=== PATIENT | female | born 1955 | race Caucasian/White ===

== ENCOUNTER 2016-06-19 19:58 | Emergency (ER) | payer BC ==
[2016-06-19] MEDS ORDERED: FAMOTIDINE 20 MG/2 ML VIAL IV STA (20:23)
[2016-06-19] MEDS ORDERED: methylPREDNISolone SOD SUCCI 125 MG/2 ML VIAL IV STA (20:23)
--- NOTE | 2016-06-19 21:03 | ED ---
General Adult HPI - General Chief complaint: Allergic Reaction Stated complaint: Allergic Reaction Time Seen by Provider: 06/19/16 20:18 Source: patient, RN notes reviewed Mode of arrival: ambulatory Limitations: no limitations - History of Present Illness Initial comments: Patient 60-year-old female who presents emergency room today with chief complaint of ALLERGIC reaction. Patient admits that she felt it right away with her throat feeling scratchy. States her lips are swollen. Does admit to increased swelling to her uvula. States she did take Benadryl 50 mg which didn' t improve her symptoms. States took another 25 mg prior to arrival. Patient does admit that she's had similar symptoms once in the past after eating soup. She states she had lunch earlier today with nothing that she knew of being ALLERGIC to. States she was getting her hair done with the same time that she' s always had in the past. Patient denies any other complaints or symptoms at this time. Patient denies any recent fever, chills, shortness of breath, chest pain, back pain, abdominal pain, nausea or vomiting, numbness or tingling, dysuria or hematuria, constipation or diarrhea, headaches or visual changes, or any other complaints. - Related Data Home Medications Medication Instructions Recorded Confirmed diphenhydrAMINE [Benadryl] 75 mg PO HS PRN 06/19/16 06/19/16 Previous Rx's Medication Instructions Recorded Famotidine [Pepcid] 20 mg PO BID #14 tablet 06/19/16 predniSONE 60 mg PO DAILY 5 Days 06/19/16 Allergies Allergy/AdvReac Type Severity Reaction Status Date / Time Sulfa (Sulfonamide Allergy Rash/Hives Verified 06/19/16 20:40 Antibiotics) Review of Systems ROS Statement: Those systems with pertinent positive or pertinent negative responses have been documented in the HPI. ROS Other: All systems not noted in ROS Statement are negative. Past Medical History Past Medical History: No Reported History History of Any Multi-Drug Resistant Organisms: None Reported Past Surgical History: No Surgical Hx Reported Past Psychological History: No Psychological Hx Reported Smoking Status: Never smoker Past Alcohol Use History: Occasional Past Drug Use History: None Reported General Exam - General Exam Comments Initial Comments: General: The patient is awake and alert, in no distress, and does not appear acutely ill. Eye: Pupils are equal, round and reactive to light, extra-ocular movements are intact. No nystagmus. There is normal conjunctiva bilaterally. No signs of icterus. Ears, nose, mouth and throat: There are moist mucous membranes and no oral lesions. Increased swelling to both upper and lower lips. No tongue swelling appreciated. Swelling to the uvula. Patient swallows without difficulty. Neck: The neck is supple, there is no tenderness or JVD. Cardiovascular: There is a regular rate and rhythm. No murmur, rub or gallop is appreciated. Respiratory: Lungs are clear to auscultation, respirations are non-labored, breath sounds are equal. No wheezes, stridor, rales, or rhonchi. Musculoskeletal: Normal ROM, no tenderness. Strength 5/5. Sensation intact. Pulses equal bilaterally 2+. Neurological: A&O x 3. CN II-XII intact, There are no obvious motor or sensory deficits. Coordination appears grossly intact. Speech is normal. Skin: Skin is warm and dry and no rashes or lesions are noted. Psychiatric: Cooperative, appropriate mood & affect, normal judgment. Limitations: no limitations Course Vital Signs 06/19/16 06/19/16 20:12 22:06 Temperature 98.2 F 97.1 F L Pulse Rate 89 84 Respiratory 18 16 Rate Blood Pressure 163/87 140/74 O2 Sat by Pulse 97 98 Oximetry Medical Decision Making - Medical Decision Making Patient reexamined at this time shows no signs of distress. She does admit that her symptoms are improving. She states she is swallowing without any difficulty. States her uvula feels much better. States the lips have gone down. Son at bedside stating that she is looking better. Patient at this time was discussed about staying for observation versus going home. She states she feels comfortable going home. She'll be continued on steroids, Benadryl, Pepcid. Patient advised to return here to emergency room if any symptoms increase or worsen or for any other concerns. Disposition Clinical Impression: Allergic reaction Disposition: HOME SELF-CARE Condition: Good Instructions: Anaphylaxis (ED) Additional Instructions: Please use medication as discussed. Please follow-up with family doctor in the next 2 days of symptoms have not improved. Please return to emergency room if the symptoms increase or worsen or for any other concerns. Prescriptions: Famotidine [Pepcid] 20 mg PO BID #14 tablet predniSONE 60 mg PO DAILY 5 Days Time of Disposition: 22:12
[2016-06-19 22:07] VITALS: BP 140/74; PULSE 84; RESP 16; TEMP 97.1
== END 2016-06-19 22:18 | disposition home or self-care (01) ==
LOC: EC 19:58
DX: T78.40XA Allergy, unspecified, initial encounter (principal); X58.XXXA Exposure to other specified factors, initial encounter; Z88.2 Allergy status to sulfonamides
CPT/HCPCS: 99283; 96374; 96375; J2930